=== PATIENT | male | born 1935 | race Caucasian/White ===

== ENCOUNTER → 2017-03-23 | Outpatient (CLI) | payer MEDICARE, OTHER ==
[2017-03-23 13:46] LABS: ABSOLUTE EOSINOPHILS # (AUTO) 0.1 10^3/uL (0.0-0.6); ABSOLUTE LYMPHOCYTES (AUTO) 1.4 10^3/uL (0.5-4.7); ABSOLUTE MONOCYTES (AUTO) 0.7 10^3/uL (0.1-1.4); ABSOLUTE NEUT (AUTO) 4.6 10^3/uL (1.7-8.2); BASOPHILS % (AUTO) 0.6 % (0-2); HEMATOCRIT 33.7 % (37.9-51.0); HEMOGLOBIN 11.5 g/dL (13.5-17.0); LYMPHOCYTES % (AUTO) 20.5 % (13-45); MEAN CORPUSCULAR HEMOGLOBIN 30.6 pg (27.0-33.4); MEAN CORPUSCULAR VOLUME 90 fl (80-97); MONOCYTES % (AUTO) 10.4 % (3-13); PLATELET COUNT 203 10^3/uL (150-450); RED BLOOD COUNT 3.75 10^6/uL (4.35-5.55); RED CELL DISTRIBUTION WIDTH 14.4 % (11.5-14.0); SEGMENTED NEUTROPHILS % (AUTO) 66.5 % (42-78); TOTAL CELLS COUNTED % (AUTO) 100 %; WHITE BLOOD COUNT 6.9 10^3/uL (4.0-10.5)
[2017-03-23 14:06] LABS: ALANINE AMINOTRANSFERASE 21 U/L (21-72); ALBUMIN 3.6 g/dL (3.5-5.0); ALKALINE PHOSPHATASE 89 U/L (38-126); ANION GAP 9 (5-19); ASPARTATE AMINO TRANSFERASE 24 U/L (17-59); BILIRUBIN,DIRECT 0.3 mg/dL (0.0-0.4); BILIRUBIN,TOTAL 0.3 mg/dL (0.2-1.3); BLOOD UREA NITROGEN 30 mg/dL (7-20); CALCIUM 8.9 mg/dL (8.4-10.2); CARBON DIOXIDE 27 mmol/L (22-30); CHLORIDE 104 mmol/L (98-107); GLUCOSE 76 mg/dL (75-110); POTASSIUM 4.7 mmol/L (3.6-5.0); SODIUM 139.5 mmol/L (137-145); TOTAL PROTEIN 6.9 g/dL (6.3-8.2)
[2017-03-23 14:24] LABS: ERYTHROCYTE SEDIMENTATION RATE 49 mm/hr (0-20)
--- NOTE | 2017-03-23 15:48 | RADIOLOGY REPORT (SQ) ---
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 NUMBER OF VIEWS: Three views. TECHNIQUE: AP, lateral, and oblique radiographic images acquired of the right ankle. LIMITATIONS: External artifact. FINDINGS: MINERALIZATION: Mild demineralization. BONES: No acute fracture or dislocation. No worrisome bone lesions. JOINTS: No effusions. SOFT TISSUES: Soft tissue swelling with posterior defect. No visible soft tissue gas. No foreign bod y. OTHER: No other significant finding. IMPRESSION: SOFT TISSUE SWELLING WITH POSTERIOR ULCERATION. NO SIGNIFICANT BONY FINDINGS. TECHNICAL DOCUMENTATION: JOB ID: [id number] [employer]- All Rights Reserved
== END ==
LOC: RAD 12:51
PROVIDERS: ATTEND Surgery
DX: L97.312 Non-pressure chronic ulcer of right ankle with fat layer exposed (principal)
CPT/HCPCS: 36415; 80053; 85025; 85652; 86140

== ENCOUNTER 2017-07-31 10:37 | Inpatient (IN) | payer MEDICARE, OTHER ==
[2017-07-31 11:21] LABS: ABSOLUTE LYMPHOCYTES (AUTO) 0.8 10^3/uL (0.5-4.7); ABSOLUTE MONOCYTES (AUTO) 0.6 10^3/uL (0.1-1.4); ABSOLUTE NEUT (AUTO) 7.8 10^3/uL (1.7-8.2); BASOPHILS % (AUTO) 0.3 % (0-2); EOSINOPHILS % (AUTO) 0.2 % (0-6); HEMOGLOBIN 11.1 g/dL (13.5-17.0); MEAN CORPUSCULAR HEMOGLOBIN 30.3 pg (27.0-33.4); MEAN CORPUSCULAR HGB CONC 33.7 g/dL (32.0-36.0); MEAN CORPUSCULAR VOLUME 90 fl (80-97); MONOCYTES % (AUTO) 6.4 % (3-13); PLATELET COUNT 201 10^3/uL (150-450); RED BLOOD COUNT 3.67 10^6/uL (4.35-5.55); RED CELL DISTRIBUTION WIDTH 13.9 % (11.5-14.0); SEGMENTED NEUTROPHILS % (AUTO) 84.1 % (42-78); TOTAL CELLS COUNTED % (AUTO) 100 %; WHITE BLOOD COUNT 9.3 10^3/uL (4.0-10.5)
[2017-07-31 11:34] LABS: VENOUS BLOOD BASE EXCESS 1.8 mmol/L; VENOUS BLOOD HCO3 26.7 mmol/L (20-32); VENOUS BLOOD PCO2 43.4 mmHg (35-63); VENOUS BLOOD PH 7.41 (7.30-7.42)
[2017-07-31 11:51] LABS: ALANINE AMINOTRANSFERASE 25 U/L (21-72); ALBUMIN 3.2 g/dL (3.5-5.0); ALKALINE PHOSPHATASE 76 U/L (38-126); ANION GAP 13 (5-19); ASPARTATE AMINO TRANSFERASE 57 U/L (17-59); BILIRUBIN,DIRECT 0.4 mg/dL (0.0-0.4); BILIRUBIN,TOTAL 0.5 mg/dL (0.2-1.3); BLOOD UREA NITROGEN 40 mg/dL (7-20); CALCIUM 9.1 mg/dL (8.4-10.2); CARBON DIOXIDE 27 mmol/L (22-30); CHLORIDE 106 mmol/L (98-107); CREATINE KINASE 642 U/L (55-170); GLUCOSE 103 mg/dL (75-110); POTASSIUM 4.3 mmol/L (3.6-5.0); SODIUM 145.8 mmol/L (137-145); TOTAL PROTEIN 6.8 g/dL (6.3-8.2)
--- NOTE | 2017-07-31 12:00 | ER Document Report ---
ED Fall - General Chief Complaint: Fall Stated Complaint: FALLS,NO PAIN Mode of Arrival: Medic Information source: Patient Notes: Patient is an 82-year-old male who presents to the ER via EMS from home where he lives by himself for fall since Monday. Patient states that nobody came by since that time and so he has been on the floor for 2 days at home unable to get up. Patient admits to some mild right shoulder pain otherwise no pain. Patient states that he has been falling more recently, he walks with a cane and walker at home, has a right below the knee amputation due to peripheral vascular disease per patient. Patient also has COPD and EMS reports that they picked him up at 82% on room air. He is not on oxygen at home. He denies any productive cough, recent fevers or chills or worsening shortness of breath. TRAVEL OUTSIDE OF THE [place] IN LAST 30 DAYS: No - Related data Allergies/Adverse Reactions: No Known Allergies Allergy (Verified 02/01/16 11:02) Home Medications: gabapentin, keflex, lisa d, calcium, iron Past Medical History - General Information source: Patient - Social History Smoking Status: Unknown if Ever Smoked Family History: CAD - Past Medical History Cardiac Medical History: Reports: Hx Hypertension - Patient denies. He has HTN in the ER & has HTN meds in EMR., Hx Peripheral Vascular Disease Denies: Hx Coronary Artery Disease, Hx Heart Attack Pulmonary Medical History: Reports: Hx COPD - 60 year history of smoking Denies: Hx Asthma, Hx Bronchitis, Hx Pneumonia Neurological Medical History: Denies: Hx Cerebrovascular Accident, Hx Seizures Endocrine Medical History: Denies: Hx Diabetes Mellitus Type 1, Hx Diabetes Mellitus Type 2 Malignancy Medical History: Reports Hx Prostate Cancer GI Medical History: Reports: Hx Gastroesophageal Reflux Disease Musculoskeltal Medical History: Denies Hx Arthritis, Reports Hx Musculoskeletal Deformity Skin Medical History: Reports Hx Cellulitis Psychiatric Medical History: Denies: Hx Depression Past Surgical History: Reports: Hx Orthopedic Surgery - Left below the knee amputation due to peripheral vascular disease, Hx Pacemaker, Other - Prostate cancer with prostatectomy - Immunizations Hx Diphtheria, Pertussis, Tetanus Vaccination: Yes Hx Pneumococcal Vaccination: 12/02/14 Review of Systems - Review of Systems Constitutional: No symptoms reported EENT: No symptoms reported Cardiovascular: No symptoms reported Respiratory: No symptoms reported Gastrointestinal: No symptoms reported Genitourinary: No symptoms reported Male Genitourinary: No symptoms reported Musculoskeletal: See HPI Skin: No symptoms reported Hematologic/Lymphatic: No symptoms reported Neurological/Psychological: No symptoms reported Physical Exam - Vital signs Vitals: Temp 97.6 F 07/31/17 11:03 - Notes Notes: PHYSICAL EXAMINATION: GENERAL: Chronically ill-appearing, but in no acute distress. HEAD: Atraumatic, normocephalic. EYES: Hard of hearing, but pupils equal round and reactive to light, extraocular movements intact, sclera anicteric, conjunctiva are normal. ENT: ear canals without erythema or foreign body, TMs pearly alamo with good bony landmarks, nares patent, oropharynx clear without exudates. Moist mucous membranes. NECK: Normal range of motion, supple without lymphadenopathy LUNGS: CTAB and equal. No wheezes rales or rhonchi. HEART: Regular rate and rhythm without murmurs ABDOMEN: Soft, no tenderness. No guarding, no rebound BACK: no vertebral tenderness, normal ROM GI/: no CVA tenderness EXTREMITIES: Right below the knee amputation, otherwise normal range of motion bilateral lower extremities without pain, tender to right clavicle and anterior and posterior shoulder, mild amount of ecchymosis and erythema to posterior right shoulder and anterior proximal clavicle, no deformity, no pitting edema. No cyanosis. NEUROLOGICAL: Cranial nerves grossly intact. Normal sensory/motor exams. PSYCH: Normal mood, normal affect. SKIN: Warm, Dry, normal turgor, see extremities above Course - Re-evaluation Re-evalutation: 07/31/17 14:45 Patient has an elevated CK of 642 which I am not surprised by as he has been on the ground for 2 days at home unable to get up. Patient has been given 2 L of fluids. Patient placed in shoulder immobilizer after x-ray reports mildly displaced clavicle and acromion fracture, thoracic, lumbar, bilateral hip, chest x-ray negative for any acute pathology. Patient has been on oxygen here and is currently at 98% on 2 L but he is not on oxygen at home. Patient admitted at this time for rhabdomyolysis as well as possible rehab as I do not believe patient is safe to go home by himself. 07/31/17 15:04 I told pt he needs to stay in the shoulder immobilizer, he keeps moving his arm out of it although it admit to understanding. - Vital Signs Vital signs: Temp Pulse Resp BP Pulse Ox 97.6 F 07/31/17 11:03 - Laboratory Result Diagrams: 07/31/17 10:55 07/31/17 10:55 Laboratory results interpreted by me: 07/31/17 07/31/17 10:55 10:55 RBC 3.67 L Hgb 11.1 L Hct 33.0 L Seg Neutrophils % 84.1 H Lymphocytes % 9.0 L Sodium 145.8 H BUN 40 H Creatine Kinase 642 H Albumin 3.2 L Discharge - Discharge Clinical Impression: Clavicle fracture Qualifiers: Encounter type: initial encounter Clavicle location: unspecified part of clavicle Fracture type: closed Fracture alignment: displaced Laterality: unspecified laterality Qualified Code(s): S42.009A - Fracture of unspecified part of unspecified clavicle, initial encounter for closed fracture COPD (chronic obstructive pulmonary disease) Qualifiers: COPD type: unspecified COPD Qualified Code(s): J44.9 - Chronic obstructive pulmonary disease, unspecified Rhabdomyolysis Qualifiers: Rhabdomyolysis type: traumatic Encounter type: initial encounter Qualified Code (s): T79.6XXA - Traumatic ischemia of muscle, initial encounter Fall Qualifiers: Encounter type: initial encounter Qualified Code(s): W19.XXXA - Unspecified fall, initial encounter Condition: Stable Disposition: ADMITTED INPATIENT Admitting Provider: Hospitalist - [facility] Admitted: Telemetry Additional Instructions: Return immediately for any new or worsening symptoms. Follow up with primary care provider, call tomorrow to make followup appointment. Referrals: VICKY DAN MD [Primary Care Provider] - Follow up as needed
--- NOTE | 2017-07-31 12:14 | RADIOLOGY REPORT (SQ) ---
EXAM DESCRIPTION: CHEST SINGLE VIEW COMPLETED DATE/TIME: 07/31/2017 11:44 am REASON FOR STUDY: found on floor, 82%ra COMPARISON: CT 01/03/2016 chest x-ray 01/02/2016 EXAM PARAMETERS: NUMBER OF VIEWS: One view. TECHNIQUE: Single frontal radiographic view of the chest acquired. RADIATION DOSE: NA LIMITATIONS: None. FINDINGS: LUNGS AND PLEURA: Chronic interstitial changes are present. No infiltrate or effusion is present. No mass is seen. MEDIASTINUM AND HILAR STRUCTURES: No masses. Contour normal. HEART AND VASCULAR STRUCTURES: Heart normal in size. Normal vasculature. BONES: No acute findings. HARDWARE: None in the chest. OTHER: No other significant finding. IMPRESSION: Chronic lung changes with no acute cardiopulmonary disease. TECHNICAL DOCUMENTATION: JOB ID: [id number] [employer]- All Rights Reserved Reading location - IP/workstation name: [email or web address]
[2017-07-31] MEDS ORDERED: NORMAL SALINE 1000 ML 2,000 ML IV ONE (12:56)
--- NOTE | 2017-07-31 12:58 | RADIOLOGY REPORT (SQ) ---
EXAM DESCRIPTION: SHOULDER RIGHT 2 OR MORE VIEWS COMPLETED DATE/TIME: 07/31/2017 12:46 pm REASON FOR STUDY: fall, pain, bruising COMPARISON: None. NUMBER OF VIEWS: Three views. TECHNIQUE: Internal rotation, external rotation, and Y view images acquired of the right shoulder. LIMITATIONS: None. FINDINGS: MINERALIZATION: Osteopenia. BONES: Slightly displaced fracture involving the distal right clavicle and acromion. JOINTS: Degenerative changes at the acromioclavicular joint. VISUALIZED LUNGS AND RIBS: No pneumothorax. No rib fracture. SOFT TISSUES: No radiopaque foreign body. OTHER: No other significant finding. IMPRESSION: 1 Slightly displaced distal right clavicular and acromial fractures. COMMENT: 1 The results of this examination were discussed with the emergency communication engineer on 07/31/2017 at 12 52 hours. TECHNICAL DOCUMENTATION: JOB ID: [id number] [employer]- All Rights Reserved Reading location - IP/workstation name: [email or web address]
--- NOTE | 2017-07-31 13:07 | RADIOLOGY REPORT (SQ) ---
EXAM DESCRIPTION: CLAVICLE RIGHT COMPLETED DATE/TIME: 07/31/2017 12:48 pm REASON FOR STUDY: fall, pain, bruising COMPARISON: None. NUMBER OF VIEWS: Two views. TECHNIQUE: Frontal and angled images were acquired of the right clavicle. LIMITATIONS: None. FINDINGS: MINERALIZATION: Normal. BONES: Minimally displaced fracture of the distal clavicle. SOFT TISSUES: No obvious swelling or foreign body. OTHER: No other significant finding. IMPRESSION: MINIMALLY DISPLACED FRACTURE OF THE DISTAL CLAVICLE. TECHNICAL DOCUMENTATION: JOB ID: [id number] [employer] All Rights Reserved Reading location - IP/workstation name: [email or web address]
--- NOTE | 2017-07-31 13:50 | RADIOLOGY REPORT (SQ) ---
EXAM DESCRIPTION: L SPINE 2 VIEWS COMPLETED DATE/TIME: 07/31/2017 1:30 pm REASON FOR STUDY: fall, pain COMPARISON: CT dated 01/03/2016. NUMBER OF VIEWS: Two views. TECHNIQUE: AP and lateral radiographic images acquired of the lumbar spine. LIMITATIONS: None. FINDINGS: MINERALIZATION: Normal. SEGMENTATION: Normal. No transitional anatomy. ALIGNMENT: Normal. VERTEBRAE: Several old compression deformities. DISCS: Multilevel disc space narrowing with osteophytes. POSTERIOR ELEMENTS: Pedicles and facets are intact. No pars defect or posterior arch defects. HARDWARE: None in the spine. PARASPINAL SOFT TISSUES: Normal. PELVIS: Intact as visualized. No fractures or worrisome bone lesions. SI joints intact. OTHER: No other significant finding. IMPRESSION: MULTILEVEL CHRONIC DEGENERATIVE CHANGES. OLD COMPRESSION DEFORMITIES. NO DEFINITE ACUT E FINDINGS. TECHNICAL DOCUMENTATION: JOB ID: [id number]- All Rights Reserved Reading location - IP/workstation name: [email or web address]
--- NOTE | 2017-07-31 13:51 | RADIOLOGY REPORT (SQ) ---
EXAM DESCRIPTION: T SPINE AP/LAT COMPLETED DATE/TIME: 07/31/2017 1:30 pm REASON FOR STUDY: fall, pain COMPARISON: CT dated 01/03/2016. NUMBER OF VIEWS: Two views. TECHNIQUE: AP and lateral radiographic images acquired of the thoracic spine. LIMITATIONS: None. FINDINGS: MINERALIZATION: Normal. ALIGNMENT: Normal. No scoliosis. VERTEBRAE: Several old compression deformities. DISCS: Multilevel disc space narrowing with osteophytes. HARDWARE: None in the spine. MEDIASTINUM AND SOFT TISSUES: Normal heart size and aortic contour. No soft tissue abnormality. VISUALIZED LUNG STAFFORD: Clear. OTHER: No other significant finding. IMPRESSION: MULTILEVEL DEGENERATIVE CHANGES. OLD COMPRESSION DEFORMITIES. NO DEFINITE ACUTE FINDIN GS. TECHNICAL DOCUMENTATION: JOB ID: [id number] [employer]- All Rights Reserved Reading location - IP/workstation name: [email or web address]
--- NOTE | 2017-07-31 13:52 | RADIOLOGY REPORT (SQ) ---
EXAM DESCRIPTION: HIP BILATERAL COMPLETED DATE/TIME: 07/31/2017 1:31 pm REASON FOR STUDY: fall, pain COMPARISON: None. NUMBER OF VIEWS: Two views TECHNIQUE: AP pelvis and additional frog-leg view of both hips. LIMITATIONS: None. FINDINGS: MINERALIZATION: Normal. HIPS: No acute fracture or dislocation. Joint space narrowing with sclerosis and osteophytes. No wo rrisome bone lesions. PELVIS AND SACRUM: No acute fracture or dislocation. No worrisome bone lesions. PUBIS AND ISCHIUM: No acute fracture. LOWER LUMBAR SPINE: No significant findings as visualized. SOFT TISSUES: No findings. OTHER: No other significant finding. IMPRESSION: DEGENERATIVE CHANGES IN THE HIPS. NO ACUTE FINDINGS. TECHNICAL DOCUMENTATION: JOB ID: [id number] [employer]- All Rights Reserved Reading location - IP/workstation name: [email or web address]
[2017-07-31] MEDS ORDERED: ACETAMINOPHEN 325 MG TABLET PO ONE (15:05)
[2017-07-31] MEDS ORDERED: POTASSI CL 20 MEQ/NS 1L 1,000 ML IV PRN (16:44)
[2017-07-31] MEDS ORDERED: ACETAMINOPHEN 325 MG TABLET PO PRN (16:44)
[2017-07-31] MEDS ORDERED: ONDANSETRON HCL INJ/PF 4 MG/2 ML SDV IV PRN (16:49)
[2017-07-31] MEDS ORDERED: HYDROCODONE/ACETAMINOPHEN 10-325 MG TABLET PO PRN (16:51)
[2017-07-31] MEDS ORDERED: HYDRALAZINE HCL INJ/PF 20 MG/1 ML SDV IV PRN (16:55)
--- NOTE | 2017-07-31 17:11 | PDOC H&P ---
History of Present Illness Admission Date/PCP: 07/31/17 15:20 VICKY DAN MD Patient complains of: Fall and shoulder pain History of Present Illness: JULIUS ALVARENGA is a 82 year old male who was found down on the floor at home. He states he fell on Monday afternoon and was unable to get up. 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 He has an ulcer on the right lower extremity that is being followed as an outpatient. He has a history of hypertension as well as COPD. He also has a history of GERD. Unfortunately the patient continues to smoke but he states that he has cut back recently. He states that over the past month that he has become increasingly weak. He has not had a good appetite and he has not had any money to buy food. He has had increasing falls. He also states that over the past month that he has developed a significant amount of hoarseness and it is sometimes difficult to speak. He is not having any trouble swallowing. He states he does not get choked on his food. He denies fever or shaking chills. He states he has had a bad cough and is coughing up some sputum at times. No chest pain. No nausea, vomiting or diarrhea. Again he just has poor appetite. No urinary complaints Past Medical History Cardiac Medical History: Reports: Hypertension - Patient denies. He has HTN in the ER & has HTN meds in EMR., Peripheral Vascular Disease Denies: Coronary Artery Disease, Myocardial Infarction Pulmonary Medical History: Reports: Chronic Obstructive Pulmonary Disease (COPD ) - 60 year history of smoking Denies: Asthma, Bronchitis, Pneumonia EENT Medical History: Reports: None Neurological Medical History: Denies: Hemorrhagic CVA, Ischemic CVA, Seizures Endocrine Medical History: Denies: Diabetes Mellitus Type 1, Diabetes Mellitus Type 2, Hyperthyroidism, Hypothyroidism Renal/ Medical History: Reports: None Malignancy Medical History: Reports: Other - He does have a history of pulmonary nodules as well as prostate cancer GI Medical History: Reports: Gastroesophageal Reflux Disease Musculoskeltal Medical History: Reports: None Denies: Arthritis Skin Medical History: Reports: None Psychiatric Medical History: Reports: Tobacco Dependency Denies: Alcohol Dependency, Depression, Substance Abuse Traumatic Medical History: Reports: None Hematology: Denies: Anemia Infectious Medical History: Reports: None Past Surgical History Past Surgical History: Reports: Orthopedic Surgery - Left below the knee amputation due to peripheral vascular disease, Other - Prostate cancer with prostatectomy Social History Information Source: Patient Lives with: Alone Smoking Status: Current Every Day Smoker Frequency of Alcohol Use: Occasional - 2 beers per week Hx Recreational Drug Use: No Drugs: None Hx Prescription Drug Abuse: No - Advance Directive Resuscitation Status: Do Not Resuscitate - I discussed CODE STATUS with the patient. He would like for us to treat him aggressively with medications but he does not want his care escalated to the ICU. He would not want to be on pressors or have chest compressions. He would not want to be intubated Surrogate healthcare decision maker:: Julius Martin who is his stepson. Family History Family History: CAD Parental Family History Reviewed: Yes Children Family History Reviewed: Yes Sibling(s) Family History Reviewed.: Yes Medication/Allergy Home Medications: Cephalexin Monohydrate [Keflex 500 mg Capsule] 500 mg PO QID 07/31/17 Gabapentin [Neurontin 300 mg Capsule] 300 mg PO QHS 07/31/17 Levofloxacin [Levaquin 500 mg Tablet] 500 mg PO DAILY 07/31/17 Allergies/Adverse Reactions: No Known Allergies Allergy (Verified 02/01/16 11:02) Review of Systems Constitutional: PRESENT: as per HPI, weight loss Ears: ABSENT: hearing changes Nose, Mouth, and Throat: ABSENT: headache(s), mouth pain, sore throat Cardiovascular: PRESENT: dyspnea on exertion. ABSENT: chest pain, edema, orthropnea, palpitations Respiratory: PRESENT: cough, dyspnea, sputum Gastrointestinal: ABSENT: abdominal pain, constipation, diarrhea, hematemesis, hematochezia, nausea, vomiting Genitourinary: ABSENT: dysuria, hematuria Musculoskeletal: PRESENT: other - Pain in his clavicle and shoulder. Integumentary: ABSENT: rash, wounds Neurological: PRESENT: weakness. ABSENT: abnormal gait, abnormal speech, confusion, dizziness, focal weakness, syncope Psychiatric: ABSENT: anxiety, depression, homidical ideation, suicidal ideation Endocrine: ABSENT: cold intolerance, heat intolerance, polydipsia, polyuria Hematologic/Lymphatic: ABSENT: easy bleeding, easy bruising Physical Exam Vital Signs: Temp Pulse Resp BP Pulse Ox 97.6 F 22 H 138/83 H 87 L 07/31/17 11:03 07/31/17 16:00 07/31/17 12:01 07/31/17 16:00 General appearance: PRESENT: no acute distress, thin, other - He is quite cachectic. Head exam: PRESENT: other - The patient has a large bruise on the right side of his head. He also has bitemporal muscle wasting. Eye exam: PRESENT: conjunctiva pink, EOMI, PERRLA. ABSENT: scleral icterus Ear exam: PRESENT: normal external ear exam Mouth exam: PRESENT: dry mucosa Neck exam: PRESENT: lymphadenopathy, thyromegaly Respiratory exam: PRESENT: other - The patient has coarse rhonchi noted throughout all lung atkinson anteriorly. He has some end expiratory wheezing Cardiovascular exam: PRESENT: RRR. ABSENT: diastolic murmur, rubs, systolic murmur Pulses: PRESENT: normal dorsalis pedis pul GI/Abdominal exam: PRESENT: normal bowel sounds, soft, other - Abdomen is quite thin. ABSENT: distended, guarding, mass, organolmegaly, rebound, tenderness Rectal exam: PRESENT: deferred Extremities exam: PRESENT: full ROM. ABSENT: calf tenderness, clubbing, pedal edema Musculoskeletal exam: PRESENT: dislocation - Right clavicle, tenderness Neurological exam: PRESENT: alert, awake, oriented to person, oriented to place , oriented to time, oriented to situation, CN II-XII grossly intact. ABSENT: motor sensory deficit Psychiatric exam: PRESENT: appropriate affect, normal mood. ABSENT: homicidal ideation, suicidal ideation Skin exam: PRESENT: other - Multiple ecchymosis is over his shoulder head and side. Also on his arms and legs Results Impressions: Chest X-Ray 07/31/17 11:05 IMPRESSION: Chronic lung changes with no acute cardiopulmonary disease. Clavicle X-Ray 07/31/17 11:59 IMPRESSION: MINIMALLY DISPLACED FRACTURE OF THE DISTAL CLAVICLE. Shoulder X-Ray 07/31/17 11:59 IMPRESSION: 1 Slightly displaced distal right clavicular and acromial fractures. Hip X-Ray 07/31/17 12:51 IMPRESSION: DEGENERATIVE CHANGES IN THE HIPS. NO ACUTE FINDINGS. Lumbar Spine X-Ray 07/31/17 12:51 IMPRESSION: MULTILEVEL CHRONIC DEGENERATIVE CHANGES. OLD COMPRESSION DEFORMITIES. NO DEFINITE ACUTE FINDINGS. Thoracic Spine X-Ray 07/31/17 12:51 IMPRESSION: MULTILEVEL DEGENERATIVE CHANGES. OLD COMPRESSION DEFORMITIES. NO DEFINITE ACUTE FINDINGS. Assessment & Plan - Diagnosis (1) Clavicle fracture Is this a current diagnosis for this admission?: Yes Plan: The patient has a brace in place. At this point I do not believe we need to get orthopedic surgery involved. This will likely just need to heal. He will probably require rehabilitation prior to going home as he lives by himself. I will get the discharge planners involved. (2) Acute respiratory failure with hypoxia Is this a current diagnosis for this admission?: Yes Plan: The patient was found to be hypoxic. He does have known underlying COPD and could be having an exacerbation. However he was on the floor for 2 days. I am going to get a CT angiography to rule out pulmonary embolus. Also to rule out any sort of pneumonia. In reviewing his records he does have known pulmonary nodules in the past and we need to rule out underlying malignancy as well. (3) COPD exacerbation Is this a current diagnosis for this admission?: Yes Plan: I will place the patient on IV Solu-Medrol. Also will place the patient on Rocephin and doxycycline as I believe he at least has acute acute bronchitis. (4) Hoarseness Is this a current diagnosis for this admission?: Yes Plan: The patient has hoarseness that is developed and worsened over the past month. He also has fullness on exam in his neck. I am going to get a CT scan of the soft tissues of the neck for further evaluation. (5) Hypertension Is this a current diagnosis for this admission?: Yes Plan: Blood pressure is adequately controlled at this point. He is not on any medications that I can tell as an outpatient. He will have as needed hydralazine available as needed. (6) Severe protein-calorie malnutrition Is this a current diagnosis for this admission?: Yes Plan: I am going to get the clinical dietitian as well as a speech therapist to see this patient. (7) Ambulatory dysfunction Is this a current diagnosis for this admission?: Yes Plan: I will have physical therapy and Occupational Therapy see the patient. Clearly I do not believe this gentleman can go back to his previous living situation at least not without quite a bit of rehab. He does live alone. Certainly it would not be safe to go home at this point. The discharge planners have been consulted (8) Tobacco dependence Is this a current diagnosis for this admission?: Yes Plan: He states that he is cut back smoking recently. He declined a nicotine patch (9) GERD (gastroesophageal reflux disease) Is this a current diagnosis for this admission?: Yes Plan: He has been started on Prevacid - Time Time Spent: 50 to 70 Minutes - Inpatient Certification Medical Necessity: Need Close Monitoring Due to Risk of Patient Decompensation - Inpatient hospitalization is necessary. I believe that this patient's hospitalization will span greater than 2 midnights. He has multiple issues going on. He has hypoxic respiratory failure and is going to be requiring parenteral therapies. He also needs evaluation by physical therapy and occupational therapy. Ultimately he is going to require subacute rehabilitation or even permanent placement prior to going home., Need For IV Fluids, Need for Pain Control, Need for IV Antibiotics, Other
[2017-07-31] MEDS ORDERED: ENOXAPARIN SODIUM INJ 40 MG/0.4 ML DISP.SYRIN SUBCUT ONE (18:00)
[2017-07-31] MEDS ORDERED: CEFTRIAXONE 1 GM/D5W RTU 1 GM/50 ML RTUPB IV SCH (18:00)
--- NOTE | 2017-07-31 18:21 | RADIOLOGY REPORT (SQ) ---
EXAM DESCRIPTION: CTA CHEST COMPLETED DATE/TIME: 07/31/2017 5:51 pm REASON FOR STUDY: hypoxia, fall on floor 2 days COMPARISON: 07/31/2017 chest x-ray CT chest 01/03/2016 TECHNIQUE: CT scan of the chest performed using helical scanning technique with dynamic intravenous contrast injection. Images reviewed with lung, soft tissue and bone windows. Reconstructed coronal and sagittal MPR images reviewed. Additional 3 dimensional post-processing performed to develop Maximal Intensity Projection images (FL P). All images stored on PACS. All CT scanners at this facility use dose modulation, iterative reconstruction, and/or weight based d osing when appropriate to reduce radiation dose to as low as reasonably achievable (ALARA). [facility]: Dose Right [facility]: CareDose [facility]: Dose Right [facility]: Teradose 4D [facility]: [employer] CONTRAST TYPE AND DOSE: contrast/concentration: Isovue 370.00 mg/ml; Total Contrast Delivered: 63.0 ml; Total Saline Delivered: 87.0 ml Contrast bolus optimized for the pulmonary arteries. Not diagnostic for the aorta. RENAL FUNCTION: BUN 40 creatinine 1 RADIATION DOSE: CT Rad equipment meets quality standard of care and radiation dose reduction techniq ues were employed. CTDIvol: 7.3 - 29.8 mGy. DLP: 1426 mGy-cm. . LIMITATIONS: None. FINDINGS: LUNGS AND PLEURA: Centrilobular and subpleural emphysematous changes. Dependent atelectas is in the lower lobes. Calcified pleural nodule on the right on image 41. AORTA AND GREAT VESSELS: No aneurysm. Contrast bolus not optimized for the aorta. HEART: No pericardial effusion. Moderate coronary artery calcifications. PULMONARY ARTERIES: No emboli visualized in the main pulmonary arteries or the segmental branches. HILAR AND MEDIASTINAL STRUCTURES: There is increased soft tissue thickening in the left hilum. See i mage 71. The masslike density measures about 18 mm. HARDWARE: None in the chest. UPPER ABDOMEN: No significant findings. Limited exam. THYROID AND OTHER SOFT TISSUES: No masses. No adenopathy. BONES: Multilevel compression changes of uncertain age. No definite acute compression fracture is se en. 3D MIPS: Confirm above findings. OTHER: No other significant finding. IMPRESSION: 1. There is no evidence of pulmonary embolus. 2. Pulmonary emphysema. Dependent atelectasis. 3. 18 mm left hilar mass. 4. Multilevel compression changes in the spine that do not appear particularly acute. COMMENT: Quality ID # [id number]: Final reports with documentation of one or more dose reduction techniques (e.g., Automated exposure control, adjustment of the mA and/or kV according to patient size, use of iterative reconstruction technique) TECHNICAL DOCUMENTATION: JOB ID: [id number] [employer]- All Rights Reserved Reading location - IP/workstation name: [email or web address]
--- NOTE | 2017-07-31 18:29 | RADIOLOGY REPORT (SQ) ---
EXAM DESCRIPTION: CT SOFT TISSUE NECK WITH COMPLETED DATE/TIME: 07/31/2017 5:51 pm REASON FOR STUDY: rule out neck mass, new onset hoarseness COMPARISON: None. TECHNIQUE: Post IV contrasted scanning from skull base through lung apices with review of bone, soft tissue and lung windows. Reconstructed coronal and sagittal MPR images reviewed. All images stored on PACS. All CT scanners at this facility use dose modulation, iterative reconstruction, and/or weight based d osing when appropriate to reduce radiation dose to as low as reasonably achievable (ALARA). [facility]: Dose Right [facility]: CareDose [facility]: Dose Right [facility]: Teradose 4D [facility]: [employer] CONTRAST TYPE AND DOSE: 63 mL Isovue 370- low osmolar. RENAL FUNCTION: BUN 40 creatinine 1 RADIATION DOSE: . LIMITATIONS: None. FINDINGS: SKULL BASE: Intact. MAJOR SALIVARY GLANDS: No solid or cystic masses. No inflammatory changes. LYMPHADENOPATHY: No adenopathy. MUCOSAL MASSES OR ASYMMETRY: No mucosal masses or asymmetry. LARYNX/CORDS: No abnormal findings. VASCULAR STRUCTURES: The major vessels are patent. LUNG APICES: See report for CT of the chest. BONES: Intact. THYROID: Normal size. No masses. PARANASAL SINUSES: Clear. OTHER: No other significant finding. IMPRESSION: NO SIGNIFICANT FINDING IN THE SOFT TISSUES OF THE NECK. TECHNICAL DOCUMENTATION: JOB ID: [id number] Quality ID # [id number]: Final reports with documentation of one or more dose reduction techniques (e.g., Au tomated exposure control, adjustment of the mA and/or kV according to patient size, use of iterative reconstruction technique) 2010 [employer]- All Rights Reserved Reading location - IP/workstation name: [email or web address]
[2017-07-31] MEDS: METHYLPREDNISOLONE INJ 40 MG/1 ML SDV IV SCH (18:32)
[2017-07-31] MEDS: IPRATROPIUM/ALBUTEROL 0.5-2.5 MG/3 ML AMPUL NEB SCH (20:13)
[2017-07-31] MEDS: CEFTRIAXONE SODIUM 1,000 MG in DEXTROSE 5%-WATER 50 ML IV SCH (23:40)
[2017-07-31] MEDS: DOXYCYCLINE HYCLATE 100 MG in DEXTROSE 5%-WATER 250 ML IV SCH (23:41)
[2017-07-31] MEDS: GABAPENTIN 300 MG CAPSULE PO SCH (23:41)
[2017-08-01] MEDS: LANSOPRAZOLE 30 MG TAB.RAP.DR PO SCH (06:01)
[2017-08-01] MEDS: METHYLPREDNISOLONE INJ 40 MG/1 ML SDV IV SCH ×2 (06:01→17:17)
[2017-08-01 06:26] LABS: ABSOLUTE LYMPHOCYTES (AUTO) 0.6 10^3/uL (0.5-4.7); ABSOLUTE MONOCYTES (AUTO) 0.2 10^3/uL (0.1-1.4); ABSOLUTE NEUT (AUTO) 5.3 10^3/uL (1.7-8.2); BASOPHILS % (AUTO) 0.2 % (0-2); HEMATOCRIT 29.5 % (37.9-51.0); HEMOGLOBIN 9.9 g/dL (13.5-17.0); LYMPHOCYTES % (AUTO) 9.4 % (13-45); MEAN CORPUSCULAR HEMOGLOBIN 30.7 pg (27.0-33.4); MEAN CORPUSCULAR HGB CONC 33.7 g/dL (32.0-36.0); MEAN CORPUSCULAR VOLUME 91 fl (80-97); MONOCYTES % (AUTO) 2.9 % (3-13); PLATELET COUNT 150 10^3/uL (150-450); RED BLOOD COUNT 3.24 10^6/uL (4.35-5.55); RED CELL DISTRIBUTION WIDTH 13.7 % (11.5-14.0); SEGMENTED NEUTROPHILS % (AUTO) 87.5 % (42-78); TOTAL CELLS COUNTED % (AUTO) 100 %; WHITE BLOOD COUNT 6.1 10^3/uL (4.0-10.5)
[2017-08-01 06:52] LABS: ALANINE AMINOTRANSFERASE 27 U/L (21-72); ALBUMIN 2.7 g/dL (3.5-5.0); ALKALINE PHOSPHATASE 65 U/L (38-126); ANION GAP 12 (5-19); ASPARTATE AMINO TRANSFERASE 41 U/L (17-59); BILIRUBIN,DIRECT 0.3 mg/dL (0.0-0.4); BILIRUBIN,TOTAL 0.3 mg/dL (0.2-1.3); BLOOD UREA NITROGEN 32 mg/dL (7-20); CALCIUM 8.7 mg/dL (8.4-10.2); CARBON DIOXIDE 24 mmol/L (22-30); CHLORIDE 111 mmol/L (98-107); CREATINE KINASE 205 U/L (55-170); GLUCOSE 115 mg/dL (75-110); PHOSPHORUS 4.2 mg/dL (2.5-4.5); POTASSIUM 5.1 mmol/L (3.6-5.0); SODIUM 146.7 mmol/L (137-145)
[2017-08-01] MEDS: IPRATROPIUM/ALBUTEROL 0.5-2.5 MG/3 ML AMPUL NEB SCH ×3 (08:34→20:50)
[2017-08-01] MEDS: ENOXAPARIN SODIUM INJ 40 MG/0.4 ML DISP.SYRIN SUBCUT SCH (09:46)
[2017-08-01] MEDS: DOXYCYCLINE HYCLATE 100 MG in DEXTROSE 5%-WATER 250 ML IV SCH ×2 (09:46→22:05)
--- NOTE | 2017-08-01 19:52 | PDOC PROGRESS REPORT ---
Subjective Progress Note for:: 08/01/17 Subjective:: Patient is resting in his bed. He has been weaned off of oxygen at this point and states that he is feeling somewhat better. He continues to have pain in his right shoulder but otherwise is doing fairly well. He is going to be seen by physical therapy and occupational therapy today. The patient will need rehab prior to going home. CT scan of the chest did reveal a hilar mass. The patient states he would like to look into this. Reason For Visit: HYPOXIC RESPIRATORY FAILURE Physical Exam Vital Signs: Temp Pulse Resp BP Pulse Ox 97.9 F 75 19 121/63 95 08/01/17 16:02 08/01/17 16:02 08/01/17 16:02 08/01/17 16:02 08/01/17 16:02 Intake & Output 07/31/17 08/01/17 08/02/17 06:59 06:59 06:59 Intake Total 1100 1170 Output Total 300 Balance 1100 870 Weight 49.4 kg General appearance: PRESENT: thin, other - Cachectic and ill-appearing Head exam: PRESENT: atraumatic, normocephalic Mouth exam: PRESENT: moist, tongue midline Respiratory exam: PRESENT: decreased breath sounds, wheezes. ABSENT: rales, rhonchi Cardiovascular exam: PRESENT: RRR. ABSENT: diastolic murmur, rubs, systolic murmur GI/Abdominal exam: PRESENT: normal bowel sounds, soft. ABSENT: distended, guarding, mass, organolmegaly, rebound, tenderness Rectal exam: PRESENT: deferred Extremities exam: ABSENT: calf tenderness, clubbing, pedal edema Musculoskeletal exam: PRESENT: tenderness - Over the right clavicle Neurological exam: PRESENT: alert, awake, oriented to person, oriented to place , oriented to time, oriented to situation, CN II-XII grossly intact. ABSENT: motor sensory deficit Psychiatric exam: PRESENT: appropriate affect, normal mood. ABSENT: homicidal ideation, suicidal ideation Results Laboratory Results: 08/01/17 06:03 08/01/17 06:03 08/01/17 08/01/17 06:03 06:03 WBC 6.1 RBC 3.24 L Hgb 9.9 L Hct 29.5 L MCV 91 MCH 30.7 MCHC 33.7 RDW 13.7 Plt Count 150 Seg Neutrophils % 87.5 H Lymphocytes % 9.4 L Monocytes % 2.9 L Eosinophils % 0.0 Basophils % 0.2 Absolute Neutrophils 5.3 Absolute Lymphocytes 0.6 Absolute Monocytes 0.2 Absolute Eosinophils 0.0 Absolute Basophils 0.0 Sodium 146.7 H Potassium 5.1 H Chloride 111 H Carbon Dioxide 24 Anion Gap 12 BUN 32 H Creatinine 0.79 Est GFR ( Amer) > 60 Est GFR (Non-Af Amer) > 60 Glucose 115 H Calcium 8.7 Phosphorus 4.2 Magnesium 2.0 Total Bilirubin 0.3 AST 41 ALT 27 Alkaline Phosphatase 65 Total Protein 6.0 L Albumin 2.7 L 08/01/17 06:03 Creatine Kinase 205 H Impressions: Chest/Abdomen CTA 07/31/17 00:00 IMPRESSION: 1. There is no evidence of pulmonary embolus. 2. Pulmonary emphysema. Dependent atelectasis. 3. 18 mm left hilar mass. 4. Multilevel compression changes in the spine that do not appear particularly acute. Soft Tissue Neck CT 07/31/17 00:00 IMPRESSION: NO SIGNIFICANT FINDING IN THE SOFT TISSUES OF THE NECK. Chest X-Ray 07/31/17 11:05 IMPRESSION: Chronic lung changes with no acute cardiopulmonary disease. Clavicle X-Ray 07/31/17 11:59 IMPRESSION: MINIMALLY DISPLACED FRACTURE OF THE DISTAL CLAVICLE. Shoulder X-Ray 07/31/17 11:59 IMPRESSION: 1 Slightly displaced distal right clavicular and acromial fractures. Hip X-Ray 07/31/17 12:51 IMPRESSION: DEGENERATIVE CHANGES IN THE HIPS. NO ACUTE FINDINGS. Lumbar Spine X-Ray 07/31/17 12:51 IMPRESSION: MULTILEVEL CHRONIC DEGENERATIVE CHANGES. OLD COMPRESSION DEFORMITIES. NO DEFINITE ACUTE FINDINGS. Thoracic Spine X-Ray 07/31/17 12:51 IMPRESSION: MULTILEVEL DEGENERATIVE CHANGES. OLD COMPRESSION DEFORMITIES. NO DEFINITE ACUTE FINDINGS. Assessment & Plan - Diagnosis (1) Clavicle fracture Is this a current diagnosis for this admission?: Yes Plan: The patient has a brace in place. At this point I do not believe we need to get orthopedic surgery involved. This will likely just need to heal. He will probably require rehabilitation prior to going home as he lives by himself. I have consulted the discharge planners (2) Acute respiratory failure with hypoxia Is this a current diagnosis for this admission?: Yes Plan: Resolved. He does not have an underlying pneumonia but did have evidence of a COPD exacerbation. He also has a new hilar mass noted. At this point I think I will just talk to oncology about how to proceed. I am not sure this gentleman would be a candidate for any aggressive treatment. I will get them to look at the scan in the morning and will follow up with the recommendations. (3) COPD exacerbation Is this a current diagnosis for this admission?: Yes Plan: I will continue IV Solu-Medrol today and likely transition him over to prednisone tomorrow. Continue Rocephin and doxycycline. This is day #2. I do believe he has an acute bronchitis (4) Hoarseness Is this a current diagnosis for this admission?: Yes Plan: CT of the soft tissues of the neck is normal. (5) Hypertension Is this a current diagnosis for this admission?: Yes Plan: Blood pressure is adequately controlled at this point. He is not on any medications that I can tell as an outpatient. He will have as needed hydralazine available as needed. (6) Severe protein-calorie malnutrition Is this a current diagnosis for this admission?: Yes Plan: Continue to encourage good p.o. intake and supplements (7) Ambulatory dysfunction Is this a current diagnosis for this admission?: Yes Plan: Continue physical therapy and Occupational Therapy. At the least he will need rehabilitation at discharge. (8) Tobacco dependence Is this a current diagnosis for this admission?: Yes Plan: He states that he is cut back smoking recently. He declined a nicotine patch (9) GERD (gastroesophageal reflux disease) Is this a current diagnosis for this admission?: Yes Plan: He has been started on Prevacid - Time Time Spent with patient: 25-34 minutes - Inpatient Certification Medical Necessity: Other - Inpatient hospitalization remains necessary. The patient is requiring parenteral therapies for his respiratory issues. He has a new lung mass that needs further workup. Also he is quite debilitated and will require rehabilitation prior to discharge.
[2017-08-01] MEDS: CEFTRIAXONE SODIUM 1,000 MG in DEXTROSE 5%-WATER 50 ML IV SCH (21:00)
[2017-08-01] MEDS: GABAPENTIN 300 MG CAPSULE PO SCH (22:05)
[2017-08-02] MEDS: LANSOPRAZOLE 30 MG TAB.RAP.DR PO SCH (05:35)
[2017-08-02] MEDS: METHYLPREDNISOLONE INJ 40 MG/1 ML SDV IV SCH (05:35)
[2017-08-02 06:35] LABS: ABSOLUTE LYMPHOCYTES (AUTO) 0.7 10^3/uL (0.5-4.7); ABSOLUTE MONOCYTES (AUTO) 0.5 10^3/uL (0.1-1.4); ABSOLUTE NEUT (AUTO) 9.5 10^3/uL (1.7-8.2); BASOPHILS % (AUTO) 0.1 % (0-2); HEMATOCRIT 28.7 % (37.9-51.0); HEMOGLOBIN 9.7 g/dL (13.5-17.0); LYMPHOCYTES % (AUTO) 6.5 % (13-45); MEAN CORPUSCULAR HEMOGLOBIN 30.7 pg (27.0-33.4); MEAN CORPUSCULAR HGB CONC 33.8 g/dL (32.0-36.0); MEAN CORPUSCULAR VOLUME 91 fl (80-97); MONOCYTES % (AUTO) 4.7 % (3-13); PLATELET COUNT 157 10^3/uL (150-450); RED BLOOD COUNT 3.16 10^6/uL (4.35-5.55); SEGMENTED NEUTROPHILS % (AUTO) 88.7 % (42-78); TOTAL CELLS COUNTED % (AUTO) 100 %; WHITE BLOOD COUNT 10.7 10^3/uL (4.0-10.5)
[2017-08-02 07:02] LABS: ALANINE AMINOTRANSFERASE 25 U/L (21-72); ALBUMIN 2.7 g/dL (3.5-5.0); ALKALINE PHOSPHATASE 63 U/L (38-126); ANION GAP 10 (5-19); ASPARTATE AMINO TRANSFERASE 37 U/L (17-59); BILIRUBIN,DIRECT 0.2 mg/dL (0.0-0.4); BILIRUBIN,TOTAL 0.2 mg/dL (0.2-1.3); BLOOD UREA NITROGEN 37 mg/dL (7-20); CALCIUM 8.7 mg/dL (8.4-10.2); CARBON DIOXIDE 24 mmol/L (22-30); CHLORIDE 108 mmol/L (98-107); GLUCOSE 118 mg/dL (75-110); PHOSPHORUS 3.2 mg/dL (2.5-4.5); POTASSIUM 4.3 mmol/L (3.6-5.0); SODIUM 141.8 mmol/L (137-145); TOTAL PROTEIN 5.8 g/dL (6.3-8.2)
[2017-08-02] MEDS: IPRATROPIUM/ALBUTEROL 0.5-2.5 MG/3 ML AMPUL NEB SCH ×3 (08:25→21:06)
[2017-08-02] MEDS: DOXYCYCLINE HYCLATE 100 MG in DEXTROSE 5%-WATER 250 ML IV SCH ×2 (09:26→21:44)
[2017-08-02] MEDS: ENOXAPARIN SODIUM INJ 40 MG/0.4 ML DISP.SYRIN SUBCUT SCH (09:26)
--- NOTE | 2017-08-02 16:00 | PDOC PROGRESS REPORT ---
Subjective Progress Note for:: 08/02/17 Subjective:: The patient is resting in his bed. He states that he continues to feel better. His breathing is improving. He continues to have pain in his right shoulder but overall he is doing fairly well. He denies fever or shaking chills. No chest pain or heart palpitations. No nausea or vomiting. His appetite is improving. He has not had a bowel movement yet today. No urinary complaints. Reason For Visit: HYPOXIC RESPIRATORY FAILURE Physical Exam Vital Signs: Temp Pulse Resp BP Pulse Ox 97.6 F 69 16 140/76 H 94 08/02/17 08:00 08/02/17 14:15 08/02/17 14:15 08/02/17 08:00 08/02/17 14:15 Intake & Output 08/01/17 08/02/17 08/03/17 06:59 06:59 06:59 Intake Total 1100 1845 Output Total 730 Balance 1100 1115 Weight 49.4 kg 57.9 kg General appearance: PRESENT: no acute distress, disheveled, thin Head exam: PRESENT: atraumatic, normocephalic Mouth exam: PRESENT: moist, tongue midline Respiratory exam: PRESENT: clear to auscultation sonam, rhonchi. ABSENT: rales, wheezes Cardiovascular exam: PRESENT: RRR. ABSENT: diastolic murmur, rubs, systolic murmur GI/Abdominal exam: PRESENT: normal bowel sounds, soft. ABSENT: distended, guarding, mass, organolmegaly, rebound, tenderness Rectal exam: PRESENT: deferred Extremities exam: PRESENT: full ROM. ABSENT: calf tenderness, clubbing, pedal edema Neurological exam: PRESENT: alert, awake, oriented to person, oriented to place , oriented to time, oriented to situation, CN II-XII grossly intact. ABSENT: motor sensory deficit Psychiatric exam: PRESENT: appropriate affect, normal mood. ABSENT: homicidal ideation, suicidal ideation Skin exam: PRESENT: abrasion, dry, intact, warm. ABSENT: cyanosis, rash Results Laboratory Results: 08/02/17 05:50 08/02/17 05:50 08/02/17 08/02/17 05:50 05:50 WBC 10.7 H RBC 3.16 L Hgb 9.7 L Hct 28.7 L MCV 91 MCH 30.7 MCHC 33.8 RDW 14.0 Plt Count 157 Seg Neutrophils % 88.7 H Lymphocytes % 6.5 L Monocytes % 4.7 Eosinophils % 0.0 Basophils % 0.1 Absolute Neutrophils 9.5 H Absolute Lymphocytes 0.7 Absolute Monocytes 0.5 Absolute Eosinophils 0.0 Absolute Basophils 0.0 Sodium 141.8 Potassium 4.3 Chloride 108 H Carbon Dioxide 24 Anion Gap 10 BUN 37 H Creatinine 0.80 Est GFR ( Amer) > 60 Est GFR (Non-Af Amer) > 60 Glucose 118 H Calcium 8.7 Phosphorus 3.2 Magnesium 2.1 Total Bilirubin 0.2 AST 37 ALT 25 Alkaline Phosphatase 63 Total Protein 5.8 L Albumin 2.7 L 08/01/17 06:03 Creatine Kinase 205 H Impressions: Chest/Abdomen CTA 07/31/17 00:00 IMPRESSION: 1. There is no evidence of pulmonary embolus. 2. Pulmonary emphysema. Dependent atelectasis. 3. 18 mm left hilar mass. 4. Multilevel compression changes in the spine that do not appear particularly acute. Soft Tissue Neck CT 07/31/17 00:00 IMPRESSION: NO SIGNIFICANT FINDING IN THE SOFT TISSUES OF THE NECK. Chest X-Ray 07/31/17 11:05 IMPRESSION: Chronic lung changes with no acute cardiopulmonary disease. Clavicle X-Ray 07/31/17 11:59 IMPRESSION: MINIMALLY DISPLACED FRACTURE OF THE DISTAL CLAVICLE. Shoulder X-Ray 07/31/17 11:59 IMPRESSION: 1 Slightly displaced distal right clavicular and acromial fractures. Hip X-Ray 07/31/17 12:51 IMPRESSION: DEGENERATIVE CHANGES IN THE HIPS. NO ACUTE FINDINGS. Lumbar Spine X-Ray 07/31/17 12:51 IMPRESSION: MULTILEVEL CHRONIC DEGENERATIVE CHANGES. OLD COMPRESSION DEFORMITIES. NO DEFINITE ACUTE FINDINGS. Thoracic Spine X-Ray 07/31/17 12:51 IMPRESSION: MULTILEVEL DEGENERATIVE CHANGES. OLD COMPRESSION DEFORMITIES. NO DEFINITE ACUTE FINDINGS. Assessment & Plan - Diagnosis (1) Clavicle fracture Is this a current diagnosis for this admission?: Yes Plan: At this point I do not believe we need to get orthopedic surgery involved. This will likely just need to heal. He will probably require rehabilitation prior to going home as he lives by himself. I have consulted the discharge planners (2) Acute respiratory failure with hypoxia Is this a current diagnosis for this admission?: Yes Plan: Resolved. He does not have an underlying pneumonia but did have evidence of a COPD exacerbation. He also has a new hilar mass noted. I did speak to both oncology and radiology. This is not an area that interventional radiology can perform a biopsy on. He would need bronchoscopy performed at a tertiary center to get a sample. The mass is not very big. Both Dr. Pedroza as well as the radiologist simply recommend repeating a scan in a few weeks. Also the patient is so weak and debilitated that he probably needs to go to rehab as he would not be a candidate for any sort of aggressive therapy in his current state. (3) COPD exacerbation Is this a current diagnosis for this admission?: Yes Plan: I will transition him to p.o. prednisone today. Continue Rocephin and doxycycline. This is day #3. I do believe he has an acute bronchitis (4) Hoarseness Is this a current diagnosis for this admission?: Yes Plan: CT of the soft tissues of the neck is normal. 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 He is not having issues at this point. (5) Hypertension Is this a current diagnosis for this admission?: Yes Plan: Blood pressure is adequately controlled at this point. He is not on any medications that I can tell as an outpatient. He will have as needed hydralazine available as needed. (6) Severe protein-calorie malnutrition Is this a current diagnosis for this admission?: Yes Plan: Continue to encourage good p.o. intake and supplements (7) Ambulatory dysfunction Is this a current diagnosis for this admission?: Yes Plan: Continue physical therapy and Occupational Therapy. At the least he will need rehabilitation at discharge. (8) Tobacco dependence Is this a current diagnosis for this admission?: Yes Plan: He states that he is cut back smoking recently. He declined a nicotine patch (9) GERD (gastroesophageal reflux disease) Is this a current diagnosis for this admission?: Yes Plan: He has been started on Prevacid - Time Time Spent with patient: 15-24 minutes - Inpatient Certification Medical Necessity: Need for IV Antibiotics, Other - Inpatient hospitalization remains necessary for IV antibiotics. Also the patient will need placement at discharge at the very least for subacute rehabilitation. The discharge planners are working on it.
[2017-08-02] MEDS ORDERED: PREDNISONE 20 MG TABLET PO SCH (18:00)
[2017-08-02] MEDS: CEFTRIAXONE SODIUM 1,000 MG in DEXTROSE 5%-WATER 50 ML IV SCH (21:31)
[2017-08-02] MEDS: GABAPENTIN 300 MG CAPSULE PO SCH (21:44)
[2017-08-03] MEDS: LANSOPRAZOLE 30 MG TAB.RAP.DR PO SCH (05:50)
[2017-08-03 06:47] LABS: ALANINE AMINOTRANSFERASE 37 U/L (21-72); ALKALINE PHOSPHATASE 65 U/L (38-126); ANION GAP 13 (5-19); ASPARTATE AMINO TRANSFERASE 44 U/L (17-59); BILIRUBIN,DIRECT 0.2 mg/dL (0.0-0.4); BILIRUBIN,TOTAL 0.2 mg/dL (0.2-1.3); BLOOD UREA NITROGEN 36 mg/dL (7-20); CALCIUM 9.3 mg/dL (8.4-10.2); CARBON DIOXIDE 25 mmol/L (22-30); CHLORIDE 106 mmol/L (98-107); GLUCOSE 108 mg/dL (75-110); PHOSPHORUS 3.2 mg/dL (2.5-4.5); POTASSIUM 4.8 mmol/L (3.6-5.0); SODIUM 143.7 mmol/L (137-145); TOTAL PROTEIN 6.3 g/dL (6.3-8.2)
[2017-08-03 07:01] LABS: ABSOLUTE LYMPHOCYTES (AUTO) 0.6 10^3/uL (0.5-4.7); ABSOLUTE MONOCYTES (AUTO) 0.4 10^3/uL (0.1-1.4); ABSOLUTE NEUT (AUTO) 9.7 10^3/uL (1.7-8.2); BASOPHILS % (AUTO) 0.1 % (0-2); HEMATOCRIT 31.8 % (37.9-51.0); HEMOGLOBIN 10.7 g/dL (13.5-17.0); LYMPHOCYTES % (AUTO) 5.8 % (13-45); MEAN CORPUSCULAR HEMOGLOBIN 30.2 pg (27.0-33.4); MEAN CORPUSCULAR HGB CONC 33.5 g/dL (32.0-36.0); MEAN CORPUSCULAR VOLUME 90 fl (80-97); PLATELET COUNT 191 10^3/uL (150-450); RED BLOOD COUNT 3.53 10^6/uL (4.35-5.55); RED CELL DISTRIBUTION WIDTH 14.1 % (11.5-14.0); SEGMENTED NEUTROPHILS % (AUTO) 90.1 % (42-78); TOTAL CELLS COUNTED % (AUTO) 100 %; WHITE BLOOD COUNT 10.7 10^3/uL (4.0-10.5)
[2017-08-03] MEDS: IPRATROPIUM/ALBUTEROL 0.5-2.5 MG/3 ML AMPUL NEB SCH ×2 (08:52→14:25)
[2017-08-03] MEDS ORDERED: ONDANSETRON HCL INJ/PF 4 MG/2 ML SDV IV PRN (10:00)
[2017-08-03] MEDS: ENOXAPARIN SODIUM INJ 40 MG/0.4 ML DISP.SYRIN SUBCUT SCH (11:08)
[2017-08-03] MEDS: DOXYCYCLINE HYCLATE 100 MG in DEXTROSE 5%-WATER 250 ML IV SCH (11:08)
--- NOTE | 2017-08-03 11:47 | PDOC TRANSFER SUMMARY ---
General - Admit/Disc Date/PCP Admission Date/Primary Care Provider: 07/31/17 15:20 VICKY DAN MD Discharge Date: 08/03/17 - Discharge Diagnosis (1) Clavicle fracture Is this a current diagnosis for this admission?: Yes Summary: He will be discharged to subacute rehabilitation. This was secondary to a fall (2) Acute respiratory failure with hypoxia Is this a current diagnosis for this admission?: Yes Summary: Secondary to COPD exacerbation. Resolved. He is stable on room air (3) COPD exacerbation Is this a current diagnosis for this admission?: Yes Summary: Much improved. He will complete a steroid taper and complete a course of therapy with p.o. doxycycline. I am starting the patient on treatment for his COPD with Symbicort and Spiriva at discharge. (4) Hilar mass Is this a current diagnosis for this admission?: Yes Summary: CT scan of the chest reveals a 1.3 cm hilar mass. I did speak to oncology about this who recommends a repeat CT scan in about 6 weeks. This could be due to underlying infection versus a possible malignancy. I did speak to interventional radiology. This lesion is not accessible for a CT-guided biopsy. He would need an EBUS at a tertiary center for biopsy. I am making him an appointment to follow-up with his primary care physician in 3-4 weeks after he gets out of rehab. A CT scan of the chest and follow-up should be scheduled at that time. 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 No issues during this hospitalization. I did get a CT scan of the soft tissues of the neck which was unremarkable. (6) Hypertension Is this a current diagnosis for this admission?: Yes Summary: Stable. (7) Severe protein-calorie malnutrition Is this a current diagnosis for this admission?: Yes Summary: I am not sure if the patient was even eating at home. He was quite debilitated at the time of admission. Continue good p.o. intake with a regular diet as well as supplements. (8) Ambulatory dysfunction Is this a current diagnosis for this admission?: Yes Summary: The patient is quite weak and debilitated. He has opted to go to subacute rehabilitation at discharge. (9) Tobacco dependence Is this a current diagnosis for this admission?: Yes Summary: Certainly it would be in the patient's best interest to quit smoking at this point. (10) GERD (gastroesophageal reflux disease) Is this a current diagnosis for this admission?: Yes Summary: Stable - Additional Information Resuscitation Status: Do Not Resuscitate - I discussed CODE STATUS with the patient. He would like for us to treat him aggressively with medications but he does not want his care escalated to the ICU. He would not want to be on pressors or have chest compressions. He would not want to be intubated Discharge Diet: Regular, Other (Comments) - train attendant for recommendations for supplements Discharge Activity: Activity As Tolerated, Slowly Increase Activity, Supervised Activity, Other - PT/OT 5 x weekly Prescriptions: Hydrocodone/Acetaminophen [[place] 10-325 mg Tablet] 1 tab PO Q6HP PRN #12 tablet PRN Reason: Budesonide/Formoterol Fumarate [Symbicort Hfa 160-4.5 Mcg Inhaler 6 gm] 1 puff IH Q12 #1 inhaler Doxycycline Hyclate 100 mg PO BID #14 tablet Prednisone 10 mg PO ASDIR #39 tablet Tiotropium Wing [Spiriva] 18 mcg IH DAILY #30 cap.w.dev Home Medications: Gabapentin [Neurontin 300 mg Capsule] 300 mg PO QHS 07/31/17 Acetaminophen [Tylenol 325 mg Tablet] 650 mg PO Q4HP PRN tablet 08/03/17 Budesonide/Formoterol Fumarate [Symbicort Hfa 160-4.5 Mcg Inhaler 6 gm] 1 puff IH Q12 #1 inhaler 08/03/17 Doxycycline Hyclate 100 mg PO BID #14 tablet 08/03/17 Hydrocodone/Acetaminophen [[place] 10-325 mg Tablet] 1 tab PO Q6HP PRN #12 tablet 08/03/17 Lansoprazole [Prevacid 30 mg Odt Tablet] 30 mg PO Q6AM tab.rap. 08/03/17 Prednisone 10 mg PO ASDIR #39 tablet 08/03/17 Tiotropium Wing [Spiriva] 18 mcg IH DAILY #30 cap.w.dev 08/03/17 History of Present Illness Admission Date/PCP: 07/31/17 15:20 VICKY DAN MD History of Present Illness: NAGA ALVARENGA is a 82 year old male who was found down on the floor at home. He states he fell on Saturday afternoon and was unable to get up. 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 He has an ulcer on the right lower extremity that is being followed as an outpatient. He has a history of hypertension as well as COPD. He also has a history of GERD. Unfortunately the patient continues to smoke but he states that he has cut back recently. He states that over the past month that he has become increasingly weak. He has not had a good appetite and he has not had any money to buy food. He has had increasing falls. He also states that over the past month that he has developed a significant amount of hoarseness and it is sometimes difficult to speak. He is not having any trouble swallowing. He states he does not get choked on his food. He denies fever or shaking chills. He states he has had a bad cough and is coughing up some sputum at times. No chest pain. No nausea, vomiting or diarrhea. Again he just has poor appetite. No urinary complaints Hospital Course Hospital Course: He was admitted to the hospital. He was started on aggressive breathing treatments as well as IV doxycycline and Rocephin. He received IV Solu-Medrol. The patient was quickly weaned off of oxygen and his respiratory status greatly improved. He was transitioned over to oral prednisone and currently is quite stable from a respiratory standpoint. In regards to his clavicle fracture and overall debility he was seen by physical therapy. He is working hard and doing quite well. He did have a CT angiography of the chest which revealed a 13 mm hilar mass. I spoke to interventional radiology and this lesion is not able to be accessed via a CT-guided biopsy. He would need an EBUS performed at a tertiary center for further evaluation. I spoke to the oncology service regarding the patient. She states that it could be an infectious lesion and recommended completing a course of antibiotics and repeating his scan in 4-6 weeks. The patient has opted to go to subacute rehabilitation at discharge. I am setting him up an appointment to follow-up with his primary care physician when he gets out of rehab. I also am sending him up at the wound care clinic for the ulcer on his right lower extremity. At this point maximum hospital benefit has been reached. The patient will be discharged home today in stable condition. Physical Exam Vital Signs: Temp Pulse Resp BP Pulse Ox 97.5 F 73 18 155/75 H 99 06/07/18 08:01 08/03/17 08:52 08/03/17 08:52 08/03/17 08:01 08/03/17 08:52 Intake & Output 08/02/17 08/03/17 08/04/17 06:59 06:59 06:59 Intake Total 1845 3321 Output Total 730 1180 Balance 1115 2141 Weight 57.9 kg 60.6 kg General appearance: PRESENT: no acute distress, thin - He is quite cachectic Head exam: PRESENT: atraumatic, normocephalic Mouth exam: PRESENT: moist, tongue midline Neck exam: ABSENT: carotid bruit, JVD, lymphadenopathy, thyromegaly Respiratory exam: PRESENT: clear to auscultation sonam. ABSENT: rales, rhonchi, wheezes Cardiovascular exam: PRESENT: RRR. ABSENT: diastolic murmur, rubs, systolic murmur Pulses: PRESENT: normal dorsalis pedis pul GI/Abdominal exam: PRESENT: normal bowel sounds, soft. ABSENT: distended, guarding, mass, organolmegaly, rebound, tenderness Rectal exam: PRESENT: deferred Neurological exam: PRESENT: alert, awake, oriented to person, oriented to place , oriented to time, oriented to situation, CN II-XII grossly intact. ABSENT: motor sensory deficit Psychiatric exam: PRESENT: appropriate affect, normal mood. ABSENT: homicidal ideation, suicidal ideation Skin exam: PRESENT: dry, intact, warm. ABSENT: cyanosis, rash Results Laboratory Results: 08/03/17 05:56 08/03/17 05:56 08/03/17 08/03/17 05:56 05:56 WBC 10.7 H RBC 3.53 L Hgb 10.7 L Hct 31.8 L MCV 90 MCH 30.2 MCHC 33.5 RDW 14.1 H Plt Count 191 Seg Neutrophils % 90.1 H Lymphocytes % 5.8 L Monocytes % 4.0 Eosinophils % 0.0 Basophils % 0.1 Absolute Neutrophils 9.7 H Absolute Lymphocytes 0.6 Absolute Monocytes 0.4 Absolute Eosinophils 0.0 Absolute Basophils 0.0 Sodium 143.7 Potassium 4.8 Chloride 106 Carbon Dioxide 25 Anion Gap 13 BUN 36 H Creatinine 0.91 Est GFR ( Amer) > 60 Est GFR (Non-Af Amer) > 60 Glucose 108 Calcium 9.3 Phosphorus 3.2 Magnesium 2.0 Total Bilirubin 0.2 AST 44 ALT 37 Alkaline Phosphatase 65 Total Protein 6.3 Albumin 3.0 L 08/01/17 06:03 Creatine Kinase 205 H Impressions: Chest/Abdomen CTA 07/31/17 00:00 IMPRESSION: 1. There is no evidence of pulmonary embolus. 2. Pulmonary emphysema. Dependent atelectasis. 3. 18 mm left hilar mass. 4. Multilevel compression changes in the spine that do not appear particularly acute. Soft Tissue Neck CT 07/31/17 00:00 IMPRESSION: NO SIGNIFICANT FINDING IN THE SOFT TISSUES OF THE NECK. Chest X-Ray 07/31/17 11:05 IMPRESSION: Chronic lung changes with no acute cardiopulmonary disease. Clavicle X-Ray 07/31/17 11:59 IMPRESSION: MINIMALLY DISPLACED FRACTURE OF THE DISTAL CLAVICLE. Shoulder X-Ray 07/31/17 11:59 IMPRESSION: 1 Slightly displaced distal right clavicular and acromial fractures. Hip X-Ray 07/31/17 12:51 IMPRESSION: DEGENERATIVE CHANGES IN THE HIPS. NO ACUTE FINDINGS. Lumbar Spine X-Ray 07/31/17 12:51 IMPRESSION: MULTILEVEL CHRONIC DEGENERATIVE CHANGES. OLD COMPRESSION DEFORMITIES. NO DEFINITE ACUTE FINDINGS. Thoracic Spine X-Ray 07/31/17 12:51 IMPRESSION: MULTILEVEL DEGENERATIVE CHANGES. OLD COMPRESSION DEFORMITIES. NO DEFINITE ACUTE FINDINGS. Transfer Plan - Disposition Transfer Plan: Transfer to subacute rehabilitation today in stable condition - Time Spent with Patient Time spent with patient: Greater than 30 Minutes Qualifiers - * PATIENT BEING DISCHARGED WITH ANY OF THE FOLLOWING DIAGNOSIS: No
[2017-08-03 12:39] VITALS: BP 98/52
[2017-08-04] MEDS ORDERED: LANSOPRAZOLE 30 MG TAB.RAP.DR PO SCH (06:00)
== END 2017-08-03 16:08 | DRG 562 ==
LOC: ER 10:37 → EH 15:20 → 4S 18:08
PROVIDERS: ADMIT Internal Medicine; ATTEND Internal Medicine
DX: S42.001A Fracture of unspecified part of right clavicle, initial encounter for closed fracture (principal); J96.01 Acute respiratory failure with hypoxia; E43 Unspecified severe protein-calorie malnutrition; J44.1 Chronic obstructive pulmonary disease with (acute) exacerbation; Z68.1 Body mass index [BMI] 19.9 or less, adult; Z66 Do not resuscitate; R91.8 Other nonspecific abnormal finding of lung field; I10 Essential (primary) hypertension; Z60.2 Problems related to living alone; K21.9 Gastro-esophageal reflux disease without esophagitis; F17.210 Nicotine dependence, cigarettes, uncomplicated; R26.89 Other abnormalities of gait and mobility; W19.XXXA Unspecified fall, initial encounter; Z89.511 Acquired absence of right leg below knee
CPT/HCPCS: 36415; 70491; 71045; 71275; 72070; 72100; 73522; 80048; 80053; 80076; 82550; 82803; 83735; 84100; 85025; 94640; 96360; 99285; G8978-GP; G8979-GP; G8987-GO; G8988-GO; J0696; J1650; J2920; J3480; J3490; J7030; J7060; J7512; J7620; L3650

== ENCOUNTER 2017-11-28 15:11 | Day surgery (SDC) | payer MEDICARE, OTHER ==
[~2017-11-28 15:11] MED LIST: DIPHENHYDRAMINE HCL 50 MG/ML VIAL ONE; FENTANYL CITRATE INJ/PF 100 MCG/2 ML AMPUL ONE; ONDANSETRON HCL INJ/PF 4 MG/2 ML SDV ONE
[2017-11-28] MEDS ORDERED: FLUMAZENIL INJ 0.5 MG/5 ML VIAL ONE (15:12)
[2017-11-28] MEDS ORDERED: GLUCAGON,HUMAN RECOMB 1 MG INJ ONE (15:12)
[2017-11-28] MEDS ORDERED: EPINEPHRINE INJ 1 MG/10 ML DISP.SYRIN ONE (15:12)
[2017-11-28] MEDS ORDERED: NALOXONE HCL INJ/PF 0.4 MG/1 ML SDV ONE (15:12)
[2017-11-28] MEDS ORDERED: MIDAZOLAM 2 MG/2 ML INJ ONE (15:12)
--- NOTE | 2017-11-28 16:45 | Operative Report ---
Operative Report DATE OF SURGERY: 11/28/17 Operative Report: Pre-op diagnosis: Dysphagia Post-op diagnosis: 1. Mild antral gastritis 2. Esophageal ring with minimum stenosis Surgery: Esophagogastroduodenoscopy with biopsy and dilation Medications: Versed 1mg Fentanyl 25 Mcg IV push Tissue removed: Antral and gastric body biopsy for pathology Procedure: After informed consent obtained from patient, the throat was sprayed with Hurricane and conscious sedation was achieved. The upper endoscope was inserted into the esophagus under direct vision and advanced into the stomach. The duodenum was entered and examined to the second part. Endoscope was then slowly pulled out of the patient as the mucosa was examined into details. Patient tolerated procedure well. Findings Esophagus: A ring was identified in the at the GE junction with mild stenosis. The ring was broken using the biopsy forceps. Antrum: Mild erythema Body: Normal Fundus: Normal Duodenum first part: Normal Duodenum second part: Normal Plan: Await pathology. Use omeprazole daily for 6 weeks OPERATION: .
[2017-11-28 17:31] VITALS: BP 122/72
== END 2017-11-28 17:25 ==
LOC: END 15:11
PROVIDERS: ATTEND Internal Medicine Gastroenterology
DX: K29.50 Unspecified chronic gastritis without bleeding (principal); I10 Essential (primary) hypertension; I73.9 Peripheral vascular disease, unspecified; J44.9 Chronic obstructive pulmonary disease, unspecified; K20.9 Esophagitis, unspecified; K22.2 Esophageal obstruction; Z79.51 Long term (current) use of inhaled steroids; Z79.899 Other long term (current) drug therapy
CPT/HCPCS: 43239; 88305; 88342; J0171; J1200; J1610; J2250; J2310; J2405; J3010; J3490

== ENCOUNTER → 2017-12-18 | Outpatient (CLI) | payer MEDICARE, OTHER | LOC: PNR 12:00 | PROVIDERS: ATTEND Family Medicine | DX: R19.7 Diarrhea, unspecified (principal) | CPT/HCPCS: 87493 ==

== ENCOUNTER 2018-02-14 08:05 | Day surgery (SDC) | payer MEDICARE, OTHER ==
[~2018-02-14 08:05] MED LIST changes: +EPINEPHRINE INJ 1 MG/10 ML DISP.SYRIN ONE; +FLUMAZENIL INJ 0.5 MG/5 ML VIAL ONE; +GLUCAGON,HUMAN RECOMB 1 MG INJ ONE; +NALOXONE HCL INJ/PF 0.4 MG/1 ML SDV ONE
[2018-02-14] MEDS: MIDAZOLAM 2 MG/2 ML INJ ONE ×2 (08:36→08:50)
--- NOTE | 2018-02-14 08:59 | Operative Report ---
Operative Report DATE OF SURGERY: 02/14/18 Operative Report: The risks, benefits and alternatives of the procedure including the risk of bleeding, perforation requiring surgery are explained to the patient in detail and informed consent is obtained. Patient is brought back to the endoscopy suite and placed in the left, lateral decubital position. Timeout was called. Conscious sedation medications are provided. A rectal examination is done which did not reveal any masses, tears or fissures. An Olympus videoscope was introduced into the patient's rectum. The scope was carefully advanced all the way to the cecum. The patient has very significant sigmoid diverticulosis with peridiverticular hypertrophy but once the sigmoid region was bypassed the rest of the colon was easily traversed to the cecum. Cecum was identified by the usual anatomical landmarks including the ileocecal valve as well as appendiceal office. Prep was reasonably good. The scope was then sequentially pulled back via the various segments of the colon including the ascending colon, hepatic flexure, transverse colon, splenic flexure, descending colon and finally into the rectosigmoid portions of the colon. Retroflexion maneuver was performed. PREOPERATIVE DIAGNOSIS: Change in bowel habits POSTOPERATIVE DIAGNOSIS: Internal hemorrhoids. Diverticulosis without any evidence of diverticulitis. Right side information in the colon biopsy rule out collagenous, microscopic, lymphocytic colitis. OPERATION: Colonoscopy with biopsy SURGEON: GLADIS RAO ANESTHESIA: Moderate Sedation - 3 mg of Versed, 25 mcg of fentanyl. Conscious sedation monitoring time 30 minutes. TISSUE REMOVED OR ALTERED: As noted above. COMPLICATIONS: None. ESTIMATED BLOOD LOSS: None. INTRAOPERATIVE FINDINGS: As noted above. PROCEDURE: Patient tolerated the procedure well. No immediate postprocedure complications are noted. Patient discharged in good condition. Discharge date 02/14/2018. Discharge diet: Regular. Discharge activity: Regular. Follow-up on biopsies Patient is instructed to call the office or proceed to the emergency room should there be any further problems or questions. PRN follow-up.
[2018-02-14 10:31] VITALS: BP 108/59
== END 2018-02-14 10:20 | disposition home or self-care (01) ==
LOC: END 08:05
PROVIDERS: ATTEND Internal Medicine Gastroenterology
DX: K57.30 Diverticulosis of large intestine without perforation or abscess without bleeding (principal); K64.8 Other hemorrhoids; K52.9 Noninfective gastroenteritis and colitis, unspecified; D64.9 Anemia, unspecified; I10 Essential (primary) hypertension; I73.9 Peripheral vascular disease, unspecified; Z87.891 Personal history of nicotine dependence; Z79.899 Other long term (current) drug therapy
CPT/HCPCS: 45380; 88305 ×2; J2250; J3010; J0171; J1200; J1610; J2310; J2405; J3490

== ENCOUNTER 2018-03-06 12:48 | Day surgery (SDC) | payer MEDICARE, OTHER ==
[~2018-03-06 12:48] MED LIST changes: +MIDAZOLAM 2 MG/2 ML INJ ONE
--- NOTE | 2018-03-06 13:31 | Operative Report ---
Operative Report DATE OF SURGERY: 03/06/18 Operative Report: The risks benefits and alternatives of the procedure explained to the patient in detail and informed consent is obtained.A GIF Olympus video scope was inserted into the patient's mouth and hypopharynx, the esophagus is identified intubated and insufflated ,the scope was then advanced through the esophagus stomach and duodenum ,retroflexion maneuver is done, the esophagus stomach and first and second portions of the duodenum examined. PREOPERATIVE DIAGNOSIS: Dysphagia POSTOPERATIVE DIAGNOSIS: Schatzki's ring status post breakage. Hiatal hernia. Gastritis status post biopsy rule out Helicobacter pylori OPERATION: EGD with biopsy SURGEON: GLADIS RAO ANESTHESIA: Moderate Sedation - 2 mg of Versed. Conscious sedation monitoring time 30 minutes. TISSUE REMOVED OR ALTERED: As noted above. COMPLICATIONS: None. ESTIMATED BLOOD LOSS: None. INTRAOPERATIVE FINDINGS: As noted above. PROCEDURE: Patient tolerated the procedure well. No immediate postprocedure complications are noted. Patient discharged in good condition. Discharge date 03/06/2018. Discharge diet: Regular. Discharge activity: Regular. 2-3-week follow-up to discuss findings. Patient is instructed to call the office or proceed to the emergency room should there be any further problems or questions. Wait on the pathology.
[2018-03-06 14:24] VITALS: BP 122/65
== END 2018-03-06 14:25 ==
LOC: END 12:48
PROVIDERS: ATTEND Internal Medicine Gastroenterology
DX: K22.2 Esophageal obstruction (principal); K44.9 Diaphragmatic hernia without obstruction or gangrene; K29.50 Unspecified chronic gastritis without bleeding; Z87.891 Personal history of nicotine dependence; Z79.899 Other long term (current) drug therapy; D64.9 Anemia, unspecified; I10 Essential (primary) hypertension; I73.9 Peripheral vascular disease, unspecified; Z85.46 Personal history of malignant neoplasm of prostate; Z85.118 Personal history of other malignant neoplasm of bronchus and lung
CPT/HCPCS: 43239; 88342 ×2; 88305 ×2; J2250; J0171; J1200; J1610; J2310; J2405; J3010; J3490

== ENCOUNTER → 2018-05-23 | Outpatient (CLI) | payer MEDICARE, OTHER ==
--- NOTE | 2018-05-24 13:18 | XCELERA REPORT ---
[address] [address] Lower Extremity Arterial Evaluation Name: NAGA ALVARENGA Age: 82 yrs Gender: Male : 1935 Patient Status: Outpatient Patient Location: [facility] Study Date: 05/23/2018 02:22 PM Procedure: A color flow and duplex scan of the lower extremity arteries was performed on the right with velocity and waveform anaylsis. Reason For Study: ULCER Ordering Physician: HIEN SANTORO Performed By: Jimi Briggs Measurements and Calculations Right Left PRODUCTION SUPERINTENDENT PSV 78.1 cm/sec Prox PFA PSV -80.8 cm/sec Prox SFA PSV 65.3 cm/sec Mid SFA PSV -60.4 cm/sec Dist SFA PSV -46.5 cm/sec Prox Pop A PSV 59.0 cm/sec Mid FILIBERTO PSV -46.2 cm/sec Mid ENVIRONMENTAL SERVICES ASSOCIATE PSV 48.4 cm/sec Lance Pedis PSV 21.8 cm/sec Right Side Arterial Evaluation Normal velocity and triphasic waveforms noted from the Common Femoral artery to the Anterior Tibial artery . Triphasic, retrograde in the Dorsalis Pedis. Biphasic with normal velocity in the Posterior Tibial artery. Ankle Brachial index not obtained due to bandaging. Interpretation Summary Mild hemodynamically significant lesions in the right lower extremity only, on duplex imaging, at rest. Complex pattern of involvement at the infrageniculate level, overall mild hemodynamic consequence likely, due to preservation of flow in the Anterior [place] artery. : HIEN SANTORO > Ki Martinez
== END ==
LOC: SP 13:37
PROVIDERS: ATTEND Preventive Medicine Undersea and Hyperbaric Medicine
DX: L97.312 Non-pressure chronic ulcer of right ankle with fat layer exposed (principal)
CPT/HCPCS: 93926